=== PATIENT | male | born 1955 | race Caucasian/White ===

== ENCOUNTER 2017-08-20 06:57 | Emergency (ER) | payer OTHER ==
[~2017-08-20] VITALS: Ht 177.8 cm; Wt 72.6 kg
[~2017-08-20 06:57] MED LIST: ASPI-630 PO; ASPI1TAB31 PO; CRESTOR5 MG PO; HYDR-971 PO; MELO15TA6 PO; METF500T9 PO; NAPR-514 PO; RANI150T21 PO; SULF1TAB24 PO; TAMS0.4C97 PO
[2017-08-20] MEDS ORDERED: methylPREDNISolone SOD SUCC PF 125 MG/2 ML VIAL. IV ONE (07:15)
[2017-08-20 07:23] LABS: HEMOGLOBIN ISTAT 12.9 gm/dL; POTASSIUM ISTAT 4.5 mmol/L (3.5-5.0)
[2017-08-20 07:28] LABS: BASO % 1 % (0-3); EOS # 0.3 x10^3/uL (0.0-0.7); EOS % 7 % (0-3); HEMATOCRIT 40.6 % (39.0-53.0); HEMOGLOBIN 14.3 g/dL (13.0-17.5); LYMPH # 1.4 x10^3/uL (1.0-4.8); LYMPH % 33 % (24-48); MEAN CORPUSCULAR HEMOGLOBIN 32 pg (25-35); MEAN CORPUSCULAR HGB CONC 35 g/dL (31-37); MEAN CORPUSCULAR VOLUME 92 fL (79-100); MONO # 0.3 x10^3/uL (0.0-1.1); MONO % 8 % (0-9); NEUT # 2.1 x10^3uL (1.8-7.7); NEUT % 51 % (31-73); PLATELET COUNT 164 x10^3/uL (140-400); RED CELL DISTRIBUTION WIDTH 13.4 % (11.5-14.5); WHITE BLOOD COUNT 4.2 x10^3/uL (4.0-11.0)
[2017-08-20] MEDS ORDERED: IOHEXOL 300 MG/ML 75 ML VIAL. IV ONE (07:30)
[2017-08-20] MEDS ORDERED: LORazepam 2 MG/ML VIAL IV ONE (07:30)
--- NOTE | 2017-08-20 07:34 | PHYS DOC ---
Past History Past Medical History: GERD Past Surgical History: Appendectomy, Other Smoking: Non-smoker Alcohol Use: Occasionally Drug Use: None Adult General Chief Complaint Chief Complaint: DIFFICULTY SWALLOWING HPI HPI 62-year-old male patient states he had cervical spine fusion 5 days ago and since yesterday has increase of the difficulty with his swallowing and breathing and feels he has water in his chest and states he feels he needs to cough to clear his throat. Patient states he had problem with his breathing last night and was snoring all night. Patient rated his pain 3/10. Review of Systems Review of Systems Constitutional: Denies fever or chills [] Eyes: Denies change in visual acuity, redness, or eye pain [] HENT: Denies nasal congestion or sore throat [] Respiratory: Reports shortness of breath and cough Cardiovascular: No additional information not addressed in HPI [] GI: Denies abdominal pain, nausea, vomiting, bloody stools or diarrhea [] : Denies dysuria or hematuria [] Musculoskeletal: Denies back pain or joint pain [] Integument: Denies rash or skin lesions [] Neurologic: Denies headache, focal weakness or sensory changes [] Endocrine: Denies polyuria or polydipsia [] All other systems were reviewed and found to be within normal limits, except as documented in this note. Current Medications Current Medications Current Medications Medications (Trade) Dose Ordered Sig/Gracy Start Time Stop Time Status Last Admin Dose Admin Methylprednisolone Sodium Succinate (SOLU-Medrol 125MG VIAL) 125 mg 1X ONCE 08/20/17 07:15 08/20/17 07:16 UNV Allergies Allergies Allergies Coded Allergies Type Severity Reaction Last Updated Verified omeprazole Allergy Unknown 07/11/14 Yes Physical Exam Physical Exam Constitutional: Well developed, well nourished, moderate distress, non-toxic appearance. [] HENT: Normocephalic, atraumatic, bilateral external ears normal, oropharynx moist, no oral exudates, nose normal. [] Eyes: PERRLA, EOMI, conjunctiva normal, no discharge. [] Neck: Moderate amount of edema in right side of neck in surgical area Cardiovascular:Heart rate regular rhythm, no murmur [] Lungs & Thorax: Mild stridor, bilateral breath sounds clear to auscultation [] Abdomen: Bowel sounds normal, soft, no tenderness, no masses, no pulsatile masses. [] Skin: Warm, dry, no erythema, no rash. [] Back: No tenderness, no CVA tenderness. [] Extremities: No tenderness, no cyanosis, no clubbing, ROM intact, no edema. [] Neurologic: Alert and oriented X 3, normal motor function, normal sensory function, no focal deficits noted. [] Psychologic: Anxiousl, judgement normal, mood normal. [] EKG EKG [] Radiology/Procedures Radiology/Procedures [][address] [address] IMAGING REPORT Signed PATIENT: SOCO JAEGER ACCOUNT: [id number] : 1955 LOCATION: ER AGE: 62 SEX: M EXAM STATUS: REG ER ORD. PHYSICIAN: GABINO CHRISTINE MD REASON: post surgical edema PROCEDURE: CT SOFT TISSUE NECK W/CONTRAST CT scan of the neck with contrast 08/20/2017 CLINICAL HISTORY: Difficulty swallowing. Postsurgical swelling. TECHNIQUE: After the intravenous administration of 75 cc of Omnipaque 300, contiguous, 3 mm axial sections were obtained through the neck. One or more of the following individualized dose reduction techniques were utilized for this study: 1. Automated exposure control. 2. Adjustment of the mA and/or kV according to patient size. 3. Use of iterative reconstruction technique. FINDINGS: Comparison study is dated 07/11/2014. The patient is post anterior discectomy and fusion using an anterior plate, bone screws and bone graft material at C5-6 and C6-7. This is old. The patient is post anterior fusion at C3-4 using an anterior plate, bone screws and bone graft material which appears to be new. A few small collections of air are seen within the soft tissues of the anterior neck which are presumably related to recent surgery. Marked edema and soft tissue swelling of the prevertebral soft tissues extending from C1-2 level through the C6 level extending from the posterior nasopharynx to the inferior hypopharynx.. The prevertebral soft tissue structures measure 2.8 cm in AP diameter. There is marked extrinsic mass effect upon the posterior oropharynx and hypopharynx. At the level of hyoid bone the air column within the inferior hypopharynx is markedly narrowed measuring 2 mm in AP and transverse dimensions. It is nearly effaced. No abscess is seen. No soft tissue mass is noted. Moderate atherosclerotic calcification is seen in the region carotid bifurcations. The parotid glands, submandibular glands and thyroid gland are within normal limits. No cervical lymphadenopathy is seen. Degenerative changes are seen involving the uncovertebral and facet joints throughout the cervical spine. IMPRESSION: Marked soft tissue swelling and edema is seen involving the prevertebral soft tissue structures throughout the cervical spine centered at the C3-4 level in the region patient's recent anterior fusion. This extrinsically compresses the posterior oropharynx and hypopharynx markedly narrowing the air column within the inferior hypopharynx as outlined above. No abscess is seen. Electronically signed by: Daniel Magallanes MD (08/20/2017 8:14 AM) [facility] DICTATED AND SIGNED BY: DANIEL MAGALLANES MD DATE: 08/20/17 0757 CC: GABINO CHRISTINE MD; PCP,UNKNOWN ~ Course & Med Decision Making Course & Med Decision Making Pertinent Labs and Imaging studies reviewed. (See chart for details) Evaluation of patient in ER showed 62-year-old female patient with recent c3-c4 cervical spine fusion complaining of increasing swelling of his next week problem with swallowing and bleeding. Had moderate distress hoarseness and mild shortness of breath. Patient had moderate amount of edema in his next without sign of ecchymosis or active bleeding. Patient's surgeon Dr. Mooney was informed at 0722 and was agreed with plan of CT of the soft tissue neck and Solu- Medrol. He mentioned that the swelling after surgery is usual for several days. Patient felt that is a bit better after treatment in ER. CT showed severe edema without hemorrhaging soft tissue next week narrowing of oropharynx and hypopharynx patient on airway. Dr. Mooney informed at 0904 and recommended to transfer patient to [facility] emergency room. DR. Cason emergency room physician at [facility] accepted transfer at 0907. Jair Disclaimer Tishon Disclaimer This electronic medical record was generated, in whole or in part, using a voice recognition dictation system. Departure Departure: Impression: Primary Impression: Shortness of breath Additional Impressions: Postoperative complication Dysphagia Disposition: XFER OTHER ([facility] at 0907) Condition: GUARDED Referrals: PCP,UNKNOWN (PCP) Critical Care Time Critical care time was [70] minutes exclusive of procedures. Problem Qualifiers GABINO CHRISTINE MD August 20, 2017 07:33
--- NOTE | 2017-08-20 08:18 | RAD ---
CT scan of the neck with contrast 08/20/2017 CLINICAL HISTORY: Difficulty swallowing. Postsurgical swelling. TECHNIQUE: After the intravenous administration of 75 cc of Omnipaque 300, contiguous, 3 mm axial sections were obtained through the neck. One or more of the following individualized dose reduction techniques were utilized for this study: 1. Automated exposure control. 2. Adjustment of the mA and/or kV according to patient size. 3. Use of iterative reconstruction technique. FINDINGS: Comparison study is dated 07/11/2014. The patient is post anterior discectomy and fusion using an anterior plate, bone screws and bone graft material at C5-6 and C6-7. This is old. The patient is post anterior fusion at C3-4 using an anterior plate, bone screws and bone graft material which appears to be new. A few small collections of air are seen within the soft tissues of the anterior neck which are presumably related to recent surgery. Marked edema and soft tissue swelling of the prevertebral soft tissues extending from C1-2 level through the C6 level extending from the posterior nasopharynx to the inferior hypopharynx.. The prevertebral soft tissue structures measure 2.8 cm in AP diameter. There is marked extrinsic mass effect upon the posterior oropharynx and hypopharynx. At the level of hyoid bone the air column within the inferior hypopharynx is markedly narrowed measuring 2 mm in AP and transverse dimensions. It is nearly effaced. No abscess is seen. No soft tissue mass is noted. Moderate atherosclerotic calcification is seen in the region carotid bifurcations. The parotid glands, submandibular glands and thyroid gland are within normal limits. No cervical lymphadenopathy is seen. Degenerative changes are seen involving the uncovertebral and facet joints throughout the cervical spine. IMPRESSION: Marked soft tissue swelling and edema is seen involving the prevertebral soft tissue structures throughout the cervical spine centered at the C3-4 level in the region patient's recent anterior fusion. This extrinsically compresses the posterior oropharynx and hypopharynx markedly narrowing the air column within the inferior hypopharynx as outlined above. No abscess is seen. Electronically signed by: Daniel Magallanes MD (08/20/2017 8:14 AM) [facility]
--- NOTE | 2017-08-20 08:22 | RAD ---
PA and lateral chest radiographs and 2017 CLINICAL HISTORY: Shortness of breath for one day. PA and lateral digital radiographs of the chest were obtained. Comparison study is dated 05/19/2014. The patient is post anterior fusion using an anterior plate, bone screws involving the mid and lower cervical spine. The cardiac silhouette is borderline enlarged. The thoracic aorta is mildly tortuous. No acute pulmonary infiltrate is seen. No pleural effusion or pneumothorax is noted. Degenerative changes are seen involving the thoracic spine. IMPRESSION: No acute pulmonary infiltrate is seen. Electronically signed by: Daniel Magallanes MD (08/20/2017 8:19 AM) [facility]
[2017-08-20 09:00] VITALS: BP 143/70
== END 2017-08-20 09:20 | disposition short-term general hospital (02) ==
LOC: ER 06:57
DX: T81.89XA Other complications of procedures, not elsewhere classified, initial encounter (principal); R13.10 Dysphagia, unspecified; R06.02 Shortness of breath; K21.9 Gastro-esophageal reflux disease without esophagitis; Z98.1 Arthrodesis status; Z88.8 Allergy status to other drugs, medicaments and biological substances
CPT/HCPCS: 36415; 70491; 71046; 80047; 85025; 85610; 96374; 96375; 99291; J2060; J2930

== ENCOUNTER 2019-04-08 20:05 | Emergency (ER) | payer OTHER ==
[~2019-04-08] VITALS: Ht 177.8 cm; Wt 122.5 kg
[~2019-04-08 20:05] MED LIST changes: +HYDR-3165 PO; -HYDR-971 PO; +METF500T11 PO; -METF500T9 PO; +RANI-376 PO; -RANI150T21 PO
[2019-04-08] MEDS ORDERED: IPRATRPIUM/ALBUTEROL 0.5/2.5MG 3 ML NEBU. NEB ONE (20:30)
--- NOTE | 2019-04-08 21:13 | PHYS DOC ---
Past History Past Medical History: GERD, High Cholesterol Past Surgical History: Appendectomy, Cholecystectomy, Knee Replacement, Other Additional Past Surgical Histo: NECK SURGERY Smoking: Non-smoker Alcohol Use: Occasionally Drug Use: None Adult General Chief Complaint Chief Complaint: COUGH HPI HPI Patient is a 63-year-old male who is presenting with cough and body aches fever headache headaches worse with coughing subjective fever for the last 2 days he just does not feel well overall he feels very tired. More short of breath especially with coughing. has a 30 yr smoking hx but does not carry a dx of copd at this time Review of Systems Review of Systems Cardiovascular: No additional information not addressed in HPI [] GI: Denies abdominal pain, nausea, vomiting, bloody stools or diarrhea [] : Denies dysuria or hematuria [] Musculoskeletal: Denies back pain or joint pain [] Integument: Denies rash or skin lesions [] Neurologic: Denies headache, focal weakness or sensory changes [] Endocrine: Denies polyuria or polydipsia [] All other systems were reviewed and found to be within normal limits, except as documented in this note. Current Medications Current Medications Current Medications Medications (Trade) Dose Ordered Sig/Gracy Start Time Stop Time Status Last Admin Dose Admin Albuterol/ Ipratropium (Duoneb) 3 ml 1X ONCE 04/08/19 20:30 04/08/19 20:31 DC 04/08/19 20:30 3 ML Allergies Allergies Allergies Coded Allergies Type Severity Reaction Last Updated Verified pantoprazole Allergy Unknown 08/20/17 Yes Physical Exam Physical Exam Constitutional: Well developed, well nourished, no acute distress, non-toxic appearance. [] HENT: Normocephalic, atraumatic, bilateral external ears normal, oropharynx moist, no oral exudates, nose normal. [] Eyes: PERRLA, EOMI, conjunctiva normal, no discharge. [] Neck: Normal range of motion, no tenderness, supple, no stridor. [] Cardiovascular:Heart rate regular rhythm, no murmur [] Lungs & Thorax: wheezing noted b/l no stridor[] Abdomen: Bowel sounds normal, soft, no tenderness, no masses, no pulsatile mass es. [] Skin: Warm, dry, no erythema, no rash. [] Back: No tenderness, no CVA tenderness. [] Extremities: No tenderness, no cyanosis, no clubbing, ROM intact, no edema. [] Neurologic: Alert and oriented X 3, normal motor function, normal sensory function, no focal deficits noted. [] Psychologic: Affect normal, judgement normal, mood normal. [] Current Patient Data Vital Signs Vital Signs Date Time Temp Pulse Resp B/P (MAP) Pulse Ox O2 Delivery O2 Flow Rate FiO2 04/08/19 20:18 83 20 96 Room Air EKG EKG EKG shows a normal sinus rhythm with a rate of 73 QTc [address] d epression is no obvious ischemic changes were identified interpreted by me time of encounter.[] Radiology/Procedures Radiology/Procedures [] Impressions: HISTORY: Cough, short of breath AP view was taken of the chest. Lungs are free of infiltrates. Heart is normal in size. There is no pleural effusion. IMPRESSION: 1. No acute chest disease. Electronically signed by: Jeffry Delacruz MD (04/08/2019 9:25 PM) [facility] DICTATED AND SIGNED BY: JEFFRY DELACRUZ MD DATE: 04/08/192124 CC: SHIMA FUNES MD; PCP,NO ~ Course & Med Decision Making Course & Med Decision Making Pertinent Labs and Imaging studies reviewed. (See chart for details) []63-year-old male with a 30 year pack smoking history but no other significant medical history p/w flulike symptoms and having fairly significant wheezing. After breathing treatment patient's lungs sound much better there is pain wheezing but his oxygen saturation was 97 he looked better and said he felt better. ER workup was essentially negative negative for pneumonia negative for flu negative for pulmonary edema negative for acute coronary syndrome. I suspect bronchitis I suspect there may be an underlying component of COPD. rx prednisone abx and albuteorl f/u pmd return precautions discussed in detail Dragon Disclaimer Dragon Disclaimer This electronic medical record was generated, in whole or in part, using a voice recognition dictation system. Departure Departure: Impression: Primary Impression: Bronchitis Disposition: HOME, SELF-CARE Condition: STABLE Referrals: PCP,NO (PCP) Scripts Albuterol Sulfate (PROAIR HFA INHALER) 8.5 Gm Hfa.aer.ad 2 PUFF IH PRN Q4-6HRS PRN for wheezing for 21 Days, #1 INHALER 0 Refills Prov: SHIMA FUNES MD 04/08/19 Doxycycline Hyclate (DOXYCYCLINE HYCLATE) 100 Mg Tablet 1 TAB PO BID for bronchitis, #14 TAB Prov: SHIMA FUNES MD 04/08/19 Prednisone (PREDNISONE) 50 Mg Tablet 1 TAB PO DAILY for bronchitis, #5 TAB Prov: SHIMA FUNES MD 04/08/19 SHIMA FUNES MD Apr 08, 2019 21:13
[2019-04-08 21:25] LABS: BASO % 1 % (0-3); EOS # 0.1 x10^3/uL (0.0-0.7); EOS % 3 % (0-3); HEMATOCRIT 41.7 % (39.0-53.0); HEMOGLOBIN 14.5 g/dL (13.0-17.5); LYMPH # 1.2 x10^3/uL (1.0-4.8); LYMPH % 28 % (24-48); MEAN CORPUSCULAR HEMOGLOBIN 33 pg (25-35); MEAN CORPUSCULAR HGB CONC 35 g/dL (31-37); MEAN CORPUSCULAR VOLUME 94 fL (79-100); MONO # 0.4 x10^3/uL (0.0-1.1); MONO % 11 % (0-9); NEUT # 2.5 x10^3uL (1.8-7.7); NEUT % 58 % (31-73); PLATELET COUNT 116 x10^3/uL (140-400); RED BLOOD COUNT 4.41 x10^6/uL (4.30-5.70); RED CELL DISTRIBUTION WIDTH 13.8 % (11.5-14.5); WHITE BLOOD COUNT 4.3 x10^3/uL (4.0-11.0)
[2019-04-08 21:26] LABS: CALCIUM 9.2 mg/dL (8.5-10.1); CREATININE 0.9 mg/dL (0.7-1.3); GFR 85.8; POTASSIUM 3.9 mmol/L (3.5-5.1)
--- NOTE | 2019-04-08 21:28 | RAD ---
AP chest. HISTORY: Cough, short of breath AP view was taken of the chest. Lungs are free of infiltrates. Heart is normal in size. There is no pleural effusion. IMPRESSION: 1. No acute chest disease. Electronically signed by: Judah Correa MD (04/08/2019 9:25 PM) [facility]
[2019-04-08 21:39] LABS: ALBUMIN 3.9 g/dL (3.4-5.0); ALBUMIN/GLOBULIN RATIO 1.3 (1.0-1.7); TOTAL BILIRUBIN 0.6 mg/dL (0.2-1.0); TOTAL PROTEIN 6.8 g/dL (6.4-8.2)
[2019-04-08] MEDS ORDERED: ACETAMINOPHEN 500 MG TABLET PO ONE (21:45)
[2019-04-08 21:54] LABS: INFLUENZA A PATIENT NEGATIVE (NEGATIVE); INFLUENZA B PATIENT NEGATIVE (NEGATIVE)
[2019-04-08] MEDS ORDERED: DOXY100T PO (22:03)
[2019-04-08] MEDS ORDERED: PRED50TA PO (22:03)
[2019-04-08] MEDS ORDERED: ALBU2.5V8 IH (22:03)
[2019-04-08] MEDS ORDERED: DOXYCYCLINE HYCLATE 100 MG TABLET PO ONE (22:15)
[2019-04-08] MEDS ORDERED: methylPREDNISolone SOD SUCC PF 125 MG/2 ML VIAL. IV ONE (22:15)
[2019-04-08 22:30] VITALS: BP 170/89
--- NOTE | 2019-04-09 06:51 | EKG ---
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
== END 2019-04-08 22:25 | disposition home or self-care (01) ==
LOC: ER 20:05
DX: J40 Bronchitis, not specified as acute or chronic (principal); K21.9 Gastro-esophageal reflux disease without esophagitis; E78.00 Pure hypercholesterolemia, unspecified; Z88.8 Allergy status to other drugs, medicaments and biological substances
CPT/HCPCS: 36415; 71045; 80053; 83880; 84484; 85025; 87804; 93005; 94640; 96374; 99285; J2930; J7620

== ENCOUNTER 2020-08-05 14:04 | Emergency (ER) | payer OTHER ==
[~2020-08-05] VITALS: Ht 177.8 cm; Wt 117.1 kg
[~2020-08-05 14:04] MED LIST changes: +ALBU2.5V8 IH; +DOXY100T PO; +METF-658 PO; -METF500T11 PO; +PRED50TA PO
[2020-08-05] MEDS ORDERED: DEXAMETHASONE 4 MG TABLET PO ONE (14:30)
[2020-08-05 14:47] VITALS: BP 152/82
[2020-08-05] MEDS ORDERED: AZIT250T6 PO (15:08)
[2020-08-05] MEDS ORDERED: ALBU2.5V8 IH (15:08)
[2020-08-05] MEDS ORDERED: PRED20TA PO (15:08)
[2020-08-05] MEDS ORDERED: BENZ100C PO (15:08)
--- NOTE | 2020-08-05 15:08 | PHYS DOC ---
Past History Past Medical History: GERD, High Cholesterol, Hypertension Past Surgical History: Appendectomy, Cholecystectomy, Knee Replacement, Other Additional Past Surgical Histo: NECK SURGERY Smoking: Non-smoker Alcohol Use: Occasionally Drug Use: None General Adult EDM: Chief Complaint: COUGH HPI: HPI: Patient is a [age] year old [sex] who presents with [] Review of Systems: Review of Systems: Constitutional: Denies fever or chills Eyes: Denies change in visual acuity HENT: Denies nasal congestion or sore throat Respiratory: Denies cough or shortness of breath Cardiovascular: Denies chest pain or edema GI: Denies abdominal pain, nausea, vomiting, bloody stools or diarrhea : Denies dysuria Musculoskeletal: Denies back pain or joint pain Integument: Denies rash Neurologic: Denies headache, focal weakness or sensory changes Endocrine: Denies polyuria or polydipsia Lymphatic: Denies swollen glands Psychiatric: Denies depression or anxiety Current Medications: Current Meds: Current Medications Medications (Trade) Dose Ordered Sig/Gracy Start Time Stop Time Status Last Admin Dose Admin Dexamethasone (Decadron) 10 mg 1X ONCE 08/05/20 14:30 08/05/20 14:35 DC 08/05/20 14:39 10 MG Allergies: Allergies: Allergies Coded Allergies Type Severity Reaction Last Updated Verified pantoprazole Allergy Unknown 08/20/17 Yes Physical Exam: PE: Constitutional: Well developed, well nourished, no acute distress, non-toxic appearance. [] HENT: Normocephalic, atraumatic, bilateral external ears normal, oropharynx moist, no oral exudates, nose normal. [] Eyes: PERRLA, EOMI, conjunctiva normal, no discharge. [] Neck: Normal range of motion, no tenderness, supple, no stridor. [] Cardiovascular:Heart rate regular rhythm, no murmur [] Lungs & Thorax: Bilateral breath sounds clear to auscultation [] Abdomen: Bowel sounds normal, soft, no tenderness, no masses, no pulsatile masses. [] Skin: Warm, dry, no erythema, no rash. [] Back: No tenderness, no CVA tenderness. [] Extremities: No tenderness, no cyanosis, no clubbing, ROM intact, no edema. [] Neurologic: Alert and oriented X 3, normal motor function, normal sensory function, no focal deficits noted. [] Psychologic: Affect normal, judgement normal, mood normal. [] Current Patient Data: Vital Signs: Vital Signs Date Time Temp Pulse Resp B/P (MAP) Pulse Ox O2 Delivery O2 Flow Rate FiO2 08/05/20 14:47 69 22 152/82 (105) 97 Room Air 08/05/20 14:08 98.1 EKG: EKG: [] Radiology/Procedures: Radiology/Procedures: PROCEDURE: CHEST AP ONLY XR CHEST 1V History: Reason: cough, COVID + / Spl. Instructions: / History: Comparison: April 08, 2019 Findings: No consolidation or pleural effusion. Normal heart size. No pneumothorax. Impression: 1. No acute cardiopulmonary process. Electronically signed by: Micah Mann DO (08/05/2020 3:04 PM) [id number] Heart Score: Risk Factors: Risk Factors: DM, Current or recent (<one month) smoker, HTN, HLP, family history of CAD, obesity. Risk Scores: Score 0 - 3: 2.5% MACE over next 6 weeks - Discharge Home Score 4 - 6: 20.3% MACE over next 6 weeks - Admit for Clinical Observation Score 7 - 10: 72.7% MACE over next 6 weeks - Early Invasive Strategies Course & Med Decision Making: Course & Med Decision Making Pertinent Labs and Imaging studies reviewed. (See chart for details) [] Jair Disclaimer: Jair Disclaimer: This electronic medical record was generated, in whole or in part, using a voice recognition dictation system. Departure Departure: Impression: Primary Impression: COVID-19 Additional Impression: Bronchitis Disposition: HOME / SELF CARE / HOMELESS Condition: STABLE Referrals: RENE STRICKLAND (PCP) Patient Instructions: Acute Bronchitis, [id number], Viral Syndrome Additional Instructions: You have been tested for or diagnosed with COVID-19. It is an infection caused by a new type of coronavirus. COVID-19 will cause cold-like or mild flu symptoms in most. It can cause more severe symptoms like problems breathing in some. There is no treatment for COVID-19. The body will clear the infection over time. Self-care will help to ease discomfort. Steps to Take: Self-Care Rest as needed. Healthy habits may help you feel better. Steps include: Choose healthy foods including fruits and vegetables. Drink water throughout the day. Get plenty of sleep each night. If you smoke, try to quit. It may ease breathing. Avoid alcohol. Keep Others Healthy The virus can spread to others. Droplets are released every time you sneeze or cough. The droplets can get into the mouth, nose, or eyes of people near you and lead to infection. To lower the chances of spreading COVID-19 to others: Stay at home until your doctor has said it is safe to leave. If you tested positive this will mean staying isolated until both of the following are true: At least 7 days have passed since the start of illness. You are free of fever for at least 72 hours without the use of medicine. During this time: - Avoid public areas, events, or transportation. Do not return to work or school until your doctor has said it is safe to do so. - Call ahead if you need to go to a medical center. Let them know you may have COVID-19. It will help them guide you where to go. They may also ask you to wear a facemask when you come to the office. - If you call for emergency medical services, let them know you may have COVID- 19. While at home: - Try to avoid close contact with others. Stay about 6 feet away. - If possible, spend most of your time in a separate room from others. - Use a face mask if you will be in close contact with others such as sharing a room or vehicle. - Have someone wipe down common surfaces in the home. Use household ear nose and throat specialist every day on areas like doorknobs, counters, or sinks. - Cough or sneeze into a tissue. Throw the tissue away right after use. If a tissue is not available, cough or sneeze into your elbow. - Wash your hands often. Wash them after sneezing or coughing. Use soap and water and wash for at least 20 seconds. Alcohol based hand fish cleaner can be used if soap and water is not available. - Do not prepare food for others. Avoid sharing personal items like forks, spoons, or toothbrushes. - Avoid close contact with pets while you are sick. There is no evidence of the virus passing to pets. This is a safety step until more is known about this virus. Isolation can be frustrating. Social interaction can help. Keep in touch with friends and family through phone and tech options. You can still interact with others in your home, just keep a safe distance of about 6 feet. Follow-up: Your doctors office will check in with you to see if there are any changes in your health. You may be asked to keep track of symptoms to share with them. They will also let you know when you are clear to be in public again. Problems to Look Out For: Contact your doctor if your recovery is not going as you expect. Get emergency care if you have problems such as: - Trouble breathing - Nonstop chest pain or pressure - Changes in awareness, confusion, or problems waking - Lips or face have bluish color - Worsening of symptoms If you think you have an emergency, call for emergency medical services right away. As taken from [facility] Scripts Benzonatate (TESSALON PERLE) 100 Mg Capsule 1 CAP PO TID PRN for COUGH, #30 CAP Prov: LUZ RODRIGUEZ DO 08/05/20 Azithromycin (AZITHROMYCIN TABLET) 250 Mg Tablet 1 PKG PO UD for bronchitis, #6 TAB Take 2 tablets today and then one tablet every day thereafter for the next 4 days Prov: LUZ RODRIGUEZ DO 08/05/20 Prednisone (PREDNISONE) 20 Mg Tablet 2 TAB PO DAILY for Bronchitis, #8 TAB Start this prescription tomorrow, 08/06/20 Prov: LUZ RODRIGUEZ DO 08/05/20 Albuterol Sulfate (PROAIR HFA INHALER) 8.5 Gm Hfa.aer.ad 2 PUFF IH PRN Q4-6HRS PRN for wheezing, #1 INHALER 0 Refills Prov: LUZ RODRIGUEZ DO 08/05/20 LUZ RODRIGUEZ DO August 05, 2020 15:08
== END 2020-08-05 15:25 | disposition home or self-care (01) ==
LOC: ER 14:04
DX: U07.1 COVID-19 (principal); J40 Bronchitis, not specified as acute or chronic; K21.9 Gastro-esophageal reflux disease without esophagitis; E78.00 Pure hypercholesterolemia, unspecified; I10 Essential (primary) hypertension; Z88.8 Allergy status to other drugs, medicaments and biological substances
CPT/HCPCS: 71045; 99283; J8540

== ENCOUNTER 2020-08-08 10:37 | Inpatient (IN) | payer OTHER ==
[~2020-08-08] VITALS: Ht 177.8 cm; Wt 117.3 kg
[~2020-08-08 10:37] MED LIST changes: +AZIT250T6 PO; +BENZ100C PO; +PRED20TA PO
[2020-08-08] MEDS ORDERED: ONDANSETRON PF 4 MG/2 ML VIAL. IVP ONE (11:15)
[2020-08-08] MEDS ORDERED: IV NORMAL SALINE 1,000ML 1,000 ML IV ONE ×2 (11:15→13:15)
--- NOTE | 2020-08-08 11:27 | PHYS DOC ---
Past History Past Medical History: GERD, High Cholesterol, Hypertension Past Surgical History: Appendectomy, Cholecystectomy, Knee Replacement, Other Additional Past Surgical Histo: NECK SURGERY Smoking: Non-smoker Alcohol Use: Occasionally Drug Use: None General Adult EDM: Chief Complaint: SHORTNESS OF BREATH HPI: HPI: Patient is a 65-year-old male coming in for multiple complaints. Was diagnosed with COVID-19 in this ER 3 days ago. Patient states that he has right upper quadrant and right flank pain since this morning. Also states he has had an episode of clear emesis and nonbloody diarrhea this morning. Subjective fevers. Has had shortness of breath. Has been taking his medications he was prescribed in the emergency department. He states been drinking a lot of water but is having darker urine and less urine output. Review of Systems: Review of Systems: All other systems within normal limits except for as noted in the HPI Current Medications: Current Meds: Current Medications Medications (Trade) Dose Ordered Sig/Gracy Start Time Stop Time Status Last Admin Dose Admin Fentanyl Citrate (Fentanyl 2ml Vial) 75 mcg 1X ONCE 08/08/20 11:15 08/08/20 11:16 UNV Ondansetron HCl (Zofran) 4 mg 1X ONCE 08/08/20 11:15 08/08/20 11:16 UNV Sodium Chloride 1,000 ml @ 1,000 mls/hr 1X ONCE 08/08/20 11:15 08/08/20 12:14 UNV Allergies: Allergies: Allergies Coded Allergies Type Severity Reaction Last Updated Verified pantoprazole Allergy Unknown 08/20/17 Yes Physical Exam: PE: Constitutional: Well developed, well nourished, mild acute distress, non-toxic appearance. [] HENT: Normocephalic, atraumatic, bilateral external ears normal, nose normal. [] Eyes: PERRLA, conjunctiva normal, no discharge. [] Neck: No rigidity, supple, no stridor. [] Cardiovascular: Regular rate and rhythm, brisk cap refill [] Lungs & Thorax: Non labored symmetric respirations, no tachypnea or respiratory distress [] Abdomen: Soft, nondistended, right upper quadrant tenderness with guarding, patient not cooperating with Yeager's sign. Skin: Warm, dry, no erythema, no rash. [] Back: Unremarkable, no step-offs or deformities. No point spinal tenderness. Right CVA tenderness, no left CVA tenderness. Extremities: No deformities, range of motion grossly intact, no lower extremity edema [] Neurologic: Alert and oriented X 3, no focal deficits noted. [] Psychologic: Affect normal, judgement normal, mood normal. [] Current Patient Data: Vital Signs: Vital Signs Date Time Temp Pulse Resp B/P (MAP) Pulse Ox O2 Delivery O2 Flow Rate FiO2 08/08/20 10:52 100.1 81 28 136/102 (113) 95 EKG: EKG: Sinus rhythm, left axis deviation, heart rate 81 bpm, S1 every [address] elevation or depression, no ectopy. [] Radiology/Procedures: Radiology/Procedures: CTA CHEST_ABDOMEN_AND PELVIS Clinical Indication: Dyspnea, cough, right upper quadrant abdominal pain, Covid positive COMPARISON: CT chest 07/11/2014. CT abdomen pelvis 05/19/2014 TECHNIQUE: Multiple contiguous axial images were obtained throughout the chest, abdomen, and pelvis with the use of IV contrast. Axial images were reformatted into coronal and sagittal planes. MIP reconstructions were performed. 100 mL Omnipaque 350 was administered. One or more of the following dose reduction techniques were utilized: Automated exposure control (AEC), Adjustment of mA and/or kV according to patient size, Use of iterative reconstruction technique such as ASiR, CT scan done according to ALARA and image gently/image wisely. Findings: The thyroid is symmetric. Few conspicuous mediastinal and hilar lymph nodes, likely reactive. No evidence of pulmonary thromboembolic disease. The thoracic aorta diameter is normal. Cardiolite gland. Coronary artery atherosclerotic disease. No pericardial effusion There is no pericardial effusion. The central airways are patent. Multiple focal bilateral ground glass opacities and consolidations. No pleural effusion is observed. There is no pneumothorax. The liver, pancreas, and adrenal glands are unremarkable. Cholecystectomy. Splenomegaly. The kidneys are unremarkable. There is no significant mesenteric or retroperitoneal adenopathy identified. There is no evidence of free intraperitoneal fluid or pneumoperitoneum. Colonic diverticulosis. Moderate aortoiliac atherosclerotic disease. Mild bladder wall thickening. Inflammatory stranding around the left distal ureter. There is no significant pelvic ascites. No significant iliac or inguinal adenopathy is identified. Degenerative changes of the spine IMPRESSION: 1. No evidence of pulmonary thrombolic disease. 2. Diffuse bilateral groundglass opacities and consolidations consistent with patient's history of infection. 3. Mild bladder wall thickening with inflammatory stranding around the left distal ureter. Consider urinalysis. No hydronephrosis. 4. Splenomegaly of uncertain etiology, new since exam of 07/11/2014. 5. Colonic diverticulosis. [] Heart Score: C/O Chest Pain: No Risk Factors: Risk Factors: DM, Current or recent (<one month) smoker, HTN, HLP, family history of CAD, obesity. Risk Scores: Score 0 - 3: 2.5% MACE over next 6 weeks - Discharge Home Score 4 - 6: 20.3% MACE over next 6 weeks - Admit for Clinical Observation Score 7 - 10: 72.7% MACE over next 6 weeks - Early Invasive Strategies Course & Med Decision Making: Course & Med Decision Making Pertinent Labs and Imaging studies reviewed. (See chart for details) Patient maintaining O2 sats around 94 to 95% on room air.. He is tachypneic around 30 breaths/min. Diffuse ground glass opacities and anticipation for respiratory decline. Discussed Dr. Vuong who will accept patient for observation of respiratory status. Patient also has thickening of bladder and stranding around left ureter, however has a negative UA. Patient is likely dehydrated due to dark color of urine. Dragon Disclaimer: Dragon Disclaimer: This electronic medical record was generated, in whole or in part, using a voice recognition dictation system. Departure Departure: Impression: Primary Impression: Flank pain Additional Impressions: COVID-19 Dehydration Disposition: ADMITTED INPATIENT Admitting Physician: Leana Ureña Condition: STABLE Referrals: RENE STRICKLAND (PCP) FERNANDO SHINE MD August 08, 2020 11:27
--- NOTE | 2020-08-08 11:38 | EKG ---
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
[2020-08-08 12:02] LABS: BASO % 0 % (0-3); EOS % 0 % (0-3); HEMATOCRIT 38.1 % (39.0-53.0); HEMOGLOBIN 13.1 g/dL (13.0-17.5); LYMPH # 0.5 x10^3/uL (1.0-4.8); LYMPH % 8 % (24-48); MEAN CORPUSCULAR HEMOGLOBIN 32 pg (25-35); MEAN CORPUSCULAR HGB CONC 34 g/dL (31-37); MEAN CORPUSCULAR VOLUME 92 fL (79-100); MONO # 0.3 x10^3/uL (0.0-1.1); MONO % 5 % (0-9); NEUT % 87 % (31-73); PLATELET COUNT 109 x10^3/uL (140-400); RED BLOOD COUNT 4.13 x10^6/uL (4.30-5.70); RED CELL DISTRIBUTION WIDTH 14.1 % (11.5-14.5); WHITE BLOOD COUNT 6.9 x10^3/uL (4.0-11.0)
[2020-08-08 12:05] LABS: CALCIUM 8.1 mg/dL (8.5-10.1); GFR 75.5; POTASSIUM 4.1 mmol/L (3.5-5.1)
[2020-08-08 12:13] LABS: BILIRUBIN,URINE NEG (NEG); CLARITY,URINE CLEAR; COLOR,URINE AMBER; GLUCOSE,URINE NEG (NEG); NITRITE,URINE NEG (NEG); UROBILINOGEN,URINE 0.2 mg/dL (0.2 mg/dL)
[2020-08-08 12:14] LABS: BACTERIA,URINE 0 /HPF (0-FEW); RBC,URINE 0 /HPF (0-2); WBC,URINE 0 /HPF (0-4)
[2020-08-08 12:18] LABS: ALBUMIN 3.3 g/dL (3.4-5.0); ALBUMIN/GLOBULIN RATIO 1.1 (1.0-1.7); MAGNESIUM 1.7 mg/dL (1.8-2.4); TOTAL BILIRUBIN 0.9 mg/dL (0.2-1.0); TOTAL PROTEIN 6.3 g/dL (6.4-8.2)
[2020-08-08] MEDS ORDERED: IOHEXOL 350 MG/ML 100 ML VIAL. IV ONE (12:30)
[2020-08-08] MEDS ORDERED: CONTRAST GIVEN. MC PRN (12:30)
--- NOTE | 2020-08-08 13:01 | RAD ---
CTA CHEST_ABDOMEN_AND PELVIS Clinical Indication: Dyspnea, cough, right upper quadrant abdominal pain, Covid positive COMPARISON: CT chest 07/11/2014. CT abdomen pelvis 05/19/2014 TECHNIQUE: Multiple contiguous axial images were obtained throughout the chest, abdomen, and pelvis with the use of IV contrast. Axial images were reformatted into coronal and sagittal planes. MIP reconstructions were performed. 100 mL Omnipaque 350 was administered. One or more of the following dose reduction te chniques were utilized: Automated exposure control (AEC), Adjustment of mA and/or kV according to pat ient size, Use of iterative reconstruction technique such as ASiR, CT scan done according to ALARA an d image gently/image wisely. Findings: The thyroid is symmetric. Few conspicuous mediastinal and hilar lymph nodes, likely reactive. No evidence of pulmonary thromboembolic disease. The thoracic aorta diameter is normal. Cardiolite gl and. Coronary artery atherosclerotic disease. No pericardial effusion There is no pericardial effusi on. The central airways are patent. Multiple focal bilateral ground glass opacities and consolidations. No pleural effusion is observed. There is no pneumothorax. The liver, pancreas, and adrenal glands are unremarkable. Cholecystectomy. Splenomegaly. The kidneys are unremarkable. There is no significant mesenteric or retroperitoneal adenopathy identified. Ther e is no evidence of free intraperitoneal fluid or pneumoperitoneum. Colonic diverticulosis. Moderate aortoiliac atherosclerotic disease. Mild bladder wall thickening. Inflammatory stranding around the left distal ureter. There is no sign ificant pelvic ascites. No significant iliac or inguinal adenopathy is identified. Degenerative changes of the spine IMPRESSION: 1. No evidence of pulmonary thrombolic disease. 2. Diffuse bilateral groundglass opacities and consolidations consistent with patient's history of in fection. 3. Mild bladder wall thickening with inflammatory stranding around the left distal ureter. Consider u rinalysis. No hydronephrosis. 4. Splenomegaly of uncertain etiology, new since exam of 07/11/2014. 5. Colonic diverticulosis. Electronically signed by: Bon Gandara MD (08/08/2020 12:59 PM) [id number]
[2020-08-08] MEDS ORDERED: MORPHINE SULFATE 4 MG/ML DISP.SYRIN. IVP PRN (14:15)
[2020-08-08] MEDS ORDERED: ACETAMINOPHEN 325 MG TABLET PO PRN (14:15)
[2020-08-08] MEDS ORDERED: ONDANSETRON PF 4 MG/2 ML VIAL. IVP PRN (14:15)
[2020-08-08] MEDS ORDERED: ALBUTEROL SULFATE 2.5 MG/3 ML NEBU. IH PRN (16:45)
[2020-08-08] MEDS ORDERED: DEXAMETHASONE SOD PHOS 10 MG/ML VIAL. IV ONE (16:45)
[2020-08-08] MEDS ORDERED: ASA/APAP/CAFFEINE 250/250/65MG TABLET. PO ONE (17:00)
[2020-08-08] MEDS ORDERED: CRESTOR10 MG PO (17:38)
[2020-08-08] MEDS ORDERED: OMEP20TA63 PO (17:38)
[2020-08-08] MEDS ORDERED: ASPI-630 PO (17:38)
[2020-08-08] MEDS ORDERED: LISI10TA16 PO (17:38)
[2020-08-08] MEDS ORDERED: ZINC50TA39 PO (17:38)
[2020-08-08] MEDS: IV NORMAL SALINE 1,000ML 1,000 ML IV SCH ×2 (17:48→23:31)
[2020-08-08 19:18] VITALS: BP 120/71
[2020-08-08] MEDS ORDERED: ALBUTEROL SULFATE 8GM INHALER. INH PRN (19:30)
[2020-08-08] MEDS: LACTOBACILLUS RHAMNOSUS GG 1 CAPSULE. PO SCH (19:38)
[2020-08-08 22:32] VITALS: BP 131/64
[2020-08-08] MEDS: HYDROcodone/APAP 5/325MG 1 TAB TABLET PO PRN (22:56)
[2020-08-09 05:42] VITALS: BP 152/75
[2020-08-09] MEDS: HYDROcodone/APAP 5/325MG 1 TAB TABLET PO PRN ×3 (06:08→19:55)
[2020-08-09] MEDS: TAMSULOSIN 0.4 MG CAP.ER.24H. PO SCH (08:03)
[2020-08-09] MEDS: DEXAMETHASONE SOD PHOS 4 MG/ML VIAL. IVP SCH (08:03)
[2020-08-09] MEDS: LACTOBACILLUS RHAMNOSUS GG 1 CAPSULE. PO SCH ×2 (08:03→19:41)
[2020-08-09] MEDS: ASPIRIN CHEWABLE 81 MG TABLET. PO SCH (08:03)
[2020-08-09] MEDS: AZITHROMYCIN 250 MG TABLET. PO SCH (08:03)
[2020-08-09] MEDS: IV NORMAL SALINE 1,000ML 1,000 ML IV SCH (10:15)
[2020-08-09 11:00] VITALS: BP 176/86
[2020-08-09 12:36] LABS: BASO % 0 % (0-3); EOS % 0 % (0-3); HEMATOCRIT 36.2 % (39.0-53.0); HEMOGLOBIN 12.6 g/dL (13.0-17.5); LYMPH # 0.5 x10^3/uL (1.0-4.8); LYMPH % 8 % (24-48); MEAN CORPUSCULAR HEMOGLOBIN 32 pg (25-35); MEAN CORPUSCULAR HGB CONC 35 g/dL (31-37); MEAN CORPUSCULAR VOLUME 93 fL (79-100); MONO # 0.3 x10^3/uL (0.0-1.1); MONO % 5 % (0-9); NEUT # 5.4 x10^3uL (1.8-7.7); NEUT % 87 % (31-73); PLATELET COUNT 115 x10^3/uL (140-400); RED BLOOD COUNT 3.92 x10^6/uL (4.30-5.70); RED CELL DISTRIBUTION WIDTH 13.9 % (11.5-14.5); WHITE BLOOD COUNT 6.2 x10^3/uL (4.0-11.0)
[2020-08-09 12:51] LABS: ALBUMIN 2.8 g/dL (3.4-5.0); ALBUMIN/GLOBULIN RATIO 0.8 (1.0-1.7); C REACTIVE PROTEIN 30.9 mg/L (0-3.3); GFR 75.5; POTASSIUM 4.2 mmol/L (3.5-5.1); TOTAL BILIRUBIN 0.4 mg/dL (0.2-1.0); TOTAL PROTEIN 6.4 g/dL (6.4-8.2)
--- NOTE | 2020-08-09 14:24 | HP ---
ADMIT DATE: 08/08/2020 HISTORY OF PRESENT ILLNESS: The patient is a 65-year-old male patient who apparently was tested positive for COVID-19 on 08/05/2020. He was tested because his has tested positive day before. He did complain of stuffy nose and headache, shortness of breath, aches and pains. However, his symptoms have worsened, and he presented to the Emergency Room with complaint of right upper quadrant and right flank pain started in the morning of admission day. He stated he has had episodes of clear emesis, nonbloody diarrhea as well as subjective fever. He had had shortness of breath, has been taking his medication as prescribed in the Emergency Department. He stated that he has been drinking lots of water, but he is having darker urine and less urine output. He was extensively investigated in the Emergency Room and apparently has had an EKG, which showed that he was in sinus rhythm with heart rate of 81 beats per minute with no ST segment elevation or depression. Has had a CT angio of the chest, abdomen and pelvis which showed no evidence of pulmonary embolism. He has diffuse bilateral ground glass opacities and consolidation consistent with the patient's history of infection, mild bladder wall thickening with inflammation stranding around the left distal ureter consistent with urinalysis, no hydronephrosis, splenomegaly of uncertain etiology. The patient was admitted with COVID-19, as well as dehydration and was basically started on IV antibiotic and dexamethasone. We continued all his medications and after obviously obtaining urine and blood for culture and sensitivity. PAST MEDICAL HISTORY: Significant for hypertension, hyperlipidemia. He has also varicose veins, status post sclerotherapy. He has morbid obesity, obstructive sleep apnea and has had BiPAP machine. Has also generalized osteoarthritis, affecting his left knee, more than right knee. PAST SURGICAL HISTORY: Significant for sclerotherapy, appendectomy, cholecystectomy, 2 neck surgeries, 3 hernia repairs, tonsillectomy. He has also had colonoscopy. ALLERGIES: HE IS ALLERGIC TO PROTONIX. MEDICATIONS: He is currently on following medications: He is on albuterol sulfate 2 puffs every 4-6 hours; tamsulosin 0.4 mg daily; Crestor 20 mg a day; lisinopril 10 mg once a day; aspirin 81 mg once a day; aspirin, acetaminophen, and caffeine or Excedrin Migraine tablets 1 tablet once a day; meloxicam 15 mg daily; and hydrocodone/APAP 5/325 one to two tablets every 6 hours. He is also on zinc sulfate 1 tablet once a day, benzonatate 100 mg 3 times a day, ranitidine 150 mg twice a day, omeprazole 20 mg once a day, prednisone 50 mg once a day, metformin 500 mg twice a day and Crestor 10 mg once a day. FAMILY HISTORY: Has one brother who is younger and has coronary artery disease and knee replacement. One sister who is apparently healthy. His father is still alive at the age of 85 and healthy. His mother with complication of diabetes and Alzheimer disease. SOCIAL HISTORY: He is , has 2 sons and 1 daughter. He quit smoking about 9 years ago. He drinks beer occasionally. He does not use any drugs. 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 REVIEW OF SYSTEMS: As per history of present illness. PHYSICAL EXAMINATION: GENERAL: On arrival to the Emergency Room, he was somewhat tachypneic, febrile with temperature of 101, but there is no pallor, jaundice, cyanosis, or thyromegaly. No jugular venous distention, no lower limb edema. VITAL SIGNS: His heart rate on arrival was 81, blood pressure is 136/102, temperature was 100.1, respiratory rate was 28 and oxygen saturation was 95% on room air. HEAD, EYES, EARS, NOSE, AND THROAT: Normocephalic, atraumatic. NECK: Supple. HEART: Showed normal first and second sounds. No gallop or murmur. CHEST: Showed central trachea, equal bilateral chest expansion, air entry. Vesicular breath sounds with bilateral basal crepitation posteriorly, more so on the left than right. ABDOMEN: Markedly distended with tenderness mostly in the epigastric area. There is mild tenderness also in the left lower quadrant, but there is no guarding or rigidity. No organomegaly. All hernial orifices intact. Bowel sounds normal. NEUROLOGIC: He was awake, alert, responding appropriately. All his cranial nerves are intact. He moves extremities without difficulty. He apparently ambulates without assistance or assistive devices. LABORATORY DATA: His lab work on admission showed a serum sodium of 137, potassium 4.1, chloride 102, bicarbonate 23, anion gap of 12, BUN 23, creatinine 1, estimated GFR was 75 mL per minute. His glucose 112. Lactic acid is 1.2, calcium was 8.1, magnesium was 1.7. Total bilirubin, ALT, alkaline phosphatase normal. AST slightly elevated. His beta natriuretic peptide was 684. Total protein 6.3, albumin was 3.3. Lipase was 305. His urinalysis essentially unremarkable. His CT scan of the chest, abdomen and pelvis showed thyroid is symmetric, a few conspicuous mediastinal hilar lymph nodes, likely reactive. There is no evidence of pulmonary thromboembolic disease. The thoracic aorta diameter is normal, ____ coronary artery atherosclerotic disease, no pericardial effusion. The central airways are patent. The patient was found to have multiple focal bilateral ground glass opacities and consolidation. No pleural effusions were observed. There is no pneumothorax. The liver, pancreas, adrenal glands are unremarkable. Cholecystectomy, splenomegaly. The kidneys are unremarkable. There is no significant mesenteric or retroperitoneal adenopathy identified. There is no evidence of free intraperitoneal fluid or pneumoperitoneum. The patient has chronic diverticulosis without any diverticulitis. The patient has moderate aortoiliac atherosclerotic disease, mild bladder wall thickening and inflammatory stranding around the left distal ureter. There is no significant pelvic ascites and no significant iliac or inguinal adenopathy identified. ASSESSMENT AND PLAN: The patient was admitted and continued on his medication. We will start him also on dexamethasone as well as ceftriaxone and Zithromax. We will follow him closely and decide the further management accordingly. LISHA/TANIYA/ROOSEVELT DR: Claudio TID: [id number]
[2020-08-09 20:10] VITALS: BP 152/76
[2020-08-09 23:25] VITALS: BP 135/66
--- NOTE | 2020-08-09 23:44 | PN ---
DATE: 08/09/2020 SUBJECTIVE: The patient is resting, slightly propped up in bed in no apparent distress. He is feeling much better today. He said that he has no fever. He does not have the hot and cold symptoms. His aches and pains are slightly better. PHYSICAL EXAMINATION: GENERAL: When I examined him today, he was resting slightly propped up in bed, in no apparent respiratory distress. No pallor, jaundice, cyanosis, or thyromegaly. No jugular distention. No edema. VITAL SIGNS: His heart rate was 63, blood pressure is 152/75, temperature was 97.8, respiratory rate 24, and oxygen saturation was 96% on 3 liters of oxygen. HEAD, EYES, EARS, NOSE AND THROAT: Normocephalic, atraumatic. NECK: Supple. HEART: Showed normal first and second heart sounds, no gallop, murmur. CHEST: Shows central trachea, equal bilateral expansion, air entry, vesicular breath sounds with crepitation mostly in the left side posteriorly. ABDOMEN: Nondistended. Tenderness mostly epigastric area in the left lower quadrant; however, there is no guarding or rigidity. No organomegaly. All hernial orifice intact. Bowel sounds normal. NEUROLOGIC: He was grossly intact. LABORATORY DATA: He has no lab work done this morning. ASSESSMENT: 1. COVID-19 infection, COVID-19 pneumonia. 2. Acute hypoxic respiratory failure. 3. The patient has multiple other medical problems including: A. Type 2 diabetes mellitus. B. Hypertension. C. Hyperlipidemia. D. Obstructive sleep apnea. E. Obesity. F. Generalized osteoarthritis. PLAN: To continue with all his current medication including antibiotics. Continue with dexamethasone. Continue with all his antihypertensive and hypoglycemic agent. LISHA DR: Claudio TID: [id number]
[2020-08-10] MEDS: ACETAMINOPHEN 325 MG TABLET PO PRN ×2 (00:18→10:48)
[2020-08-10 05:31] VITALS: BP 145/82
[2020-08-10] MEDS: ASPIRIN CHEWABLE 81 MG TABLET. PO SCH (08:23)
[2020-08-10] MEDS: DEXAMETHASONE SOD PHOS 4 MG/ML VIAL. IVP SCH (08:23)
[2020-08-10] MEDS: LACTOBACILLUS RHAMNOSUS GG 1 CAPSULE. PO SCH ×2 (08:23→20:02)
[2020-08-10] MEDS: TAMSULOSIN 0.4 MG CAP.ER.24H. PO SCH (08:23)
[2020-08-10] MEDS: AZITHROMYCIN 250 MG TABLET. PO SCH (08:23)
[2020-08-10 11:06] VITALS: BP 168/88
[2020-08-10 15:00] VITALS: BP 190/92
[2020-08-10] MEDS ORDERED: ATORVASTATIN CALCIUM 20 MG TABLET PO SCH (16:00)
--- NOTE | 2020-08-10 16:29 | RAD ---
XR CHEST 1V 08/10/2020 4:15 PM INDICATION: Worsening shortness of breath COMPARISON: 08/05/2020 TECHNIQUE: Portable frontal view of the chest is provided. FINDINGS: The cardiomediastinal silhouette is within normal limits. Increased patchy alveolar airspace disease with increased interstitial prominence. There may be trace pleural effusions. No pneumothorax. Anterior cervical discectomy and fusion hardware is partially profiled. IMPRESSION: Increased mixed interstitial and alveolar airspace disease as may be seen with atypical pneumonitis o r developing pulmonary edema. Increased hilar prominence may reflect lymphadenopathy versus vascular prominence. Electronically signed by: Alecia Dutta MD (08/10/2020 4:27 PM) [id number]
[2020-08-10] MEDS: IPRATROPIUM/ALBUTEROL 20/100mcg/INH INHALER. INH SCH ×2 (16:31→20:00)
[2020-08-10] MEDS: ENOXAPARIN 40 MG/0.4 ML SYRINGE. SQ SCH (16:32)
[2020-08-10] MEDS ORDERED: FUROSEMIDE 20 MG/2 ML VIAL IVP ONE (17:30)
[2020-08-10] MEDS: LISINOPRIL 10 MG TABLET PO SCH (17:52)
[2020-08-10] MEDS ORDERED: REMDESIVIR LOAD in IV NORMAL SALINE 250ML TV IV ONE (20:00)
[2020-08-10] MEDS: HYDROcodone/APAP 5/325MG 1 TAB TABLET PO PRN (20:13)
[2020-08-10 20:20] VITALS: BP 165/80
[2020-08-10 22:29] VITALS: BP 183/97
--- NOTE | 2020-08-11 00:40 | PN ---
DATE: 08/10/2020 SUBJECTIVE: The patient is complaining that he is more short of breath and some cough that is mostly dry, chest tight and wheezy. PHYSICAL EXAMINATION: GENERAL: When I examined him, he looked well and was clearly in no apparent respiratory distress. No pallor, jaundice, cyanosis, or thyromegaly. No jugular venous distention or limb edema. VITAL SIGNS: Heart rate was 65, blood pressure is 168/88, temperature 97.8, respiratory rate 20, and oxygen saturation was 97% on 2 liters of oxygen. HEAD, EYES, EARS, NOSE AND THROAT: Normocephalic, atraumatic. NECK: Supple. HEART: Showed normal first and second heart sounds, no gallop, murmur. CHEST: Shows central trachea, equal bilateral expansion, air entry, vesicular breath sounds. The patient has diffuse rhonchi and crepitation, mostly in the left side posteriorly. ABDOMEN: Distended, soft, nontender. NEUROLOGIC: He was grossly intact. His intake over the last 24 hours was 2140, output 700. LABORATORY DATA: No lab work done this morning. ASSESSMENT: 1. COVID-19 pneumonia. 2. Acute hypoxic respiratory failure. 3. The patient has multiple other medical problems including: A. Type 2 diabetes mellitus. B. Hypertension. C. Hyperlipidemia. D. Obstructive sleep apnea. E. Obesity. F. Generalized osteoarthritis. PLAN: My plan is to obviously continue with IV antibiotic. Continue with dexamethasone. Continue with all other medication. I will add obviously Lovenox and the pharmacy will start him on Combivent inhaler. Repeat chest x-ray today and his lab work tomorrow and decide the further management accordingly. LISHA/JEAN CLAUDE DR: Claudio TID: [id number]
[2020-08-11 06:13] VITALS: BP 153/83
[2020-08-11 06:27] LABS: HEMATOCRIT 36.4 % (39.0-53.0); HEMOGLOBIN 12.5 g/dL (13.0-17.5); RED BLOOD COUNT 3.95 x10^6/uL (4.30-5.70); RED CELL DISTRIBUTION WIDTH 13.9 % (11.5-14.5); WHITE BLOOD COUNT 6.6 x10^3/uL (4.0-11.0)
[2020-08-11 06:43] LABS: ALBUMIN 2.7 g/dL (3.4-5.0); ALBUMIN/GLOBULIN RATIO 0.8 (1.0-1.7); CALCIUM 8.2 mg/dL (8.5-10.1); CREATININE 0.9 mg/dL (0.7-1.3); GFR 85.2; TOTAL BILIRUBIN 0.5 mg/dL (0.2-1.0); TOTAL PROTEIN 6.3 g/dL (6.4-8.2)
[2020-08-11] MEDS: IPRATROPIUM/ALBUTEROL 20/100mcg/INH INHALER. INH SCH ×3 (08:00→16:00)
[2020-08-11] MEDS: AZITHROMYCIN 250 MG TABLET. PO SCH (08:32)
[2020-08-11] MEDS: ASPIRIN CHEWABLE 81 MG TABLET. PO SCH (08:32)
[2020-08-11] MEDS: LACTOBACILLUS RHAMNOSUS GG 1 CAPSULE. PO SCH (08:32)
[2020-08-11] MEDS: TAMSULOSIN 0.4 MG CAP.ER.24H. PO SCH (08:32)
[2020-08-11] MEDS: DEXAMETHASONE SOD PHOS 4 MG/ML VIAL. IVP SCH (08:33)
[2020-08-11] MEDS ORDERED: metFORMIN XR 500 MG TAB.ER.24H PO SCH (09:00)
[2020-08-11] MEDS: LISINOPRIL 10 MG TABLET PO SCH (09:00)
[2020-08-11 11:15] VITALS: BP 158/78
[2020-08-11] MEDS ORDERED: FUROSEMIDE 40 MG/4 ML VIAL IVP ONE (11:15)
[2020-08-11 15:00] VITALS: BP 157/72
[2020-08-11] MEDS: HYDROcodone/APAP 5/325MG 1 TAB TABLET PO PRN (15:56)
[2020-08-11] MEDS: ENOXAPARIN 40 MG/0.4 ML SYRINGE. SQ SCH (17:30)
[2020-08-11] MEDS ORDERED: REMDESIVIR 100mg in NORMAL SALINE 250ML X 4 DAYS IV SCH (20:00)
--- NOTE | 2020-08-12 01:34 | PN ---
DATE: 08/11/2020 SUBJECTIVE: The patient is complaining that he is more short of breath, although his oxygen saturation remained stable and we recommended that we could transfer him to [facility] but he adamantly refused and asked if we transfer him to [facility] in the [place] as his was admitted there recently for the same problem. I did contact the transfer center. Unfortunately, they have no beds available and therefore, I contacted the [place], but apparently they are part of the [facility] and all their COVID-19 go to [place], [place]. The patient also refusing to go there and I did contact the [facility], although he was accepted ___ they need preauthorization initiated with the before he was transferred something that he could not do at the end of the day. PHYSICAL EXAMINATION: GENERAL: When I saw him this afternoon, he was resting slightly propped up in bed, in no apparent respiratory distress. There was no pallor, jaundice, cyanosis, or thyromegaly. No jugular distention. No edema. VITAL SIGNS: Heart rate was 75, blood pressure was 158/78, temperature was 98, respiratory rate was 20 and oxygen saturation was 95% on 5 liters as per nursing staff. HEAD, EYES, EARS, NOSE AND THROAT: Normocephalic, atraumatic. NECK: Supple. HEART: Showed normal first and second heart sounds. No gallop or murmur. CHEST: Shows central trachea, equal bilateral expansion. Equal air entry. Has diffuse rhonchi and crepitation, mostly on the left side posteriorly. ABDOMEN: Distended, soft, nontender. NEUROLOGIC: He was somewhat more anxious today; however, all his cranial nerves are intact. He moves extremities without difficulty. INTAKE AND OUTPUT: His intake was 2140, output was about 700. LABORATORY DATA: White cell count was 6600, hemoglobin 12.5, hematocrit 36.4, MCV 92 and platelet count of 168,000. His chemistry this morning showed a serum sodium 141, potassium 4, chloride 106, bicarbonate 26, anion gap of 9, BUN 16, creatinine 0.9. Estimated GFR was 85 mL per minute. His glucose was 91, calcium was 8.2. Total bilirubin and alkaline phosphatase is normal. ALT and AST slightly elevated. Total protein 6.3, albumin 2.7. ASSESSMENT: 1. COVID-19 pneumonia. 2. Acute hypoxic respiratory failure. 3. The patient has multiple other medical problems including: A. Type 2 diabetes mellitus. B. Hypertension. C. Hyperlipidemia. D. Obstructive sleep apnea. E. Obesity. F. Generalized osteoarthritis. If the patient's symptoms worsened and required transfer to the ICU, the transfer center at [facility] stated are willing to reconsider and to be accepted as he has clinically deteriorated. BRAD DR: Claudio TID: [id number]
== END 2020-08-11 19:35 | disposition short-term general hospital (02) | DRG 177 ==
LOC: ER 10:37 → 1 SOUTH 14:05
PROVIDERS: ADMIT Internal Medicine; ATTEND Internal Medicine
PROC: XW033E5 Introduction of Remdesivir Anti-infective into Peripheral Vein, Percutaneous Approach, New Technology Group 5 (ICD-10-PCS; principal; 2020-08-10)
DX: U07.1 COVID-19 (principal); J96.01 Acute respiratory failure with hypoxia; J12.82 Pneumonia due to coronavirus disease 2019; E78.00 Pure hypercholesterolemia, unspecified; I10 Essential (primary) hypertension; K21.9 Gastro-esophageal reflux disease without esophagitis; Z96.659 Presence of unspecified artificial knee joint; E86.0 Dehydration; E78.5 Hyperlipidemia, unspecified; M15.9 Polyosteoarthritis, unspecified; G47.33 Obstructive sleep apnea (adult) (pediatric); E66.01 Morbid (severe) obesity due to excess calories; E11.9 Type 2 diabetes mellitus without complications; K57.30 Diverticulosis of large intestine without perforation or abscess without bleeding; R16.1 Splenomegaly, not elsewhere classified; Z83.3 Family history of diabetes mellitus; Z90.49 Acquired absence of other specified parts of digestive tract; Z82.49 Family history of ischemic heart disease and other diseases of the circulatory system; Z87.891 Personal history of nicotine dependence; Z82.0 Family history of epilepsy and other diseases of the nervous system; Z68.37 Body mass index [BMI] 37.0-37.9, adult; Z88.8 Allergy status to other drugs, medicaments and biological substances
CPT/HCPCS: 36415; 71045; 71275; 74177; 80053; 81001; 83605; 83690; 83735; 83880; 84484; 85025; 85027; 85379; 86140; 93005; 96361; 96374; 96375; J0696; J1100; J1650; J1940; J2270; J2405; J3010; J7050; Q9967; 99285-25; J7030